=== PATIENT | male | born 1980 | race Caucasian/White ===

== ENCOUNTER 2018-10-08 10:07 | Inpatient (IN) ==
[2018-10-08] MEDS ORDERED: Acetaminophen 325 MG Tablet PO PRN (13:42)
[2018-10-08] MEDS ORDERED: Sodium Phosphate Inj 15 MMOL in Sodium Chlor 0.9% Inj 100 ML IV.SIG PRN (13:45)
[2018-10-08] MEDS ORDERED: Potassium Chlor 40 mEq Premix 40 MEQ/100 ML PIGGYBACK IV.SIG PRN ×2 (13:45)
[2018-10-08] MEDS ORDERED: Potassium Chlor 20 mEq Premix 20 MEQ/100 ML PIGGYBACK IV.SIG PRN ×6 (13:45)
[2018-10-08] MEDS ORDERED: Insulin Regular (For Infusion) 100 UNIT in Sodium Chlor 0.9% Inj 99 ML IV.CONT PRN (14:00)
[2018-10-08] MEDS: Sod Chloride 0.9% Inj 1,000 ML IV.CONT SCH (15:36)
--- NOTE | 2018-10-08 17:49 | P.HPIM ---
History of Present Illness Primary Care Physician: No Primary Care Physician Chief Complaint: Weakness, Nausea, Hyperglycemia History of Present Illness: Mr. House is a 38-year-old male. He comes in secondary to weakness, nausea, and hyperglycemia. He has a previous history of DKA. He says starting about 2 years ago he has had 2 prior episodes of DKA. He is found to be in DKA today. He missed his insulin dosing this morning secondary to nausea and lack of p.o. intake. He does report that recently his blood sugars have not been controlled and he has been needing more insulin than previously. His only other medical condition is a stress related seizure disorder which he treats with marijuana. No other complaints. Inpatient Certification Inpatient Certification: I certify that the inpatient services were ordered in accordance with Medicare regulations governing the order. This includes certification that hospital inpatient services are reasonable and necessary and in the case of services not specified as inpatient-only under 42 CFR 419.22(n), that they are appropriately provided as inpatient services in accordance to with the 2-midnight benchmark under 43 CFR 412.3(e) Estimated Total Length of Stay (Days): 4 Plans for Post Hospital Care: Home Review of Systems Constitutional: No fevers, no chills no night sweats, no fatigue, weakness Eyes: No eye pain, no blurry vision, no loss of vision ENT: No sore throat, no ear pain, no rhinorrhea Cardiovascular: No chest pain, no tachycardia, no palpitations, no syncope Respiratory: No wheezing, no cough, no shortness of breath Gastrointestinal: No abdominal pain, no black tarry stools, no bright red blood per rectum, nausea, no diarrhea Musculoskeletal: No joint pain, no muscle cramps, no stiffness Integumentary: No rash, no ulcers, no drainage Neurologic: No sensory loss, no loss of motor function, no dizziness Psychiatric: No behavioral changes, no hallucinations, no suicidal ideations [facility] Medical History Medical History Diabetes (Acute) Surgical History Surgical History Hx of hand surgery (Acute) Family History Family History Other Osteoarthritis Social History Social History Substance History: Active Abuse Second Hand Smoke Exposure: Yes Smoking Status: Current every day smoker Tobacco Type: Cigarettes How Often Do You Have a Drink Containing Alcohol: Monthly or less Recent Travel in [place] within the Last 8 Weeks: No Recent Out of Country Travel within the Last 8 Weeks: No Substance Abuse Detail Marijuana: Substance Use Status: Active Route Used Substance Abuse: Inhalation Substance Frequency: 1 gram every 2 to 3 days Immunization History Hx Influenza Vaccine This Season: No Medications and Allergies Allergies Allergy/AdvReac Type Severity Reaction Status Date / Time codeine Allergy Vomiting Verified 10/08/18 10:25 Home Medications Medication Instructions Recorded Confirmed Type Long Acting Insulin 14 units SUBCUT DAILY 10/08/18 History Short Acting Insulin 10 units SUBCUT TID 10/08/18 History Active Medications: Active Medications Acetaminophen (Tylenol) 650 mg PO Q4H PRN PRN Reason: Temp > 100.4 Al Hydroxide/Mg Hydroxide (Milk Of Gilberto Maldonado) 30 ml PO Q12H PRN PRN Reason: Mild Constipation Chlorhexidine Gluconate (Chlorhexidine 2% Cloth) 3 pack TOPICAL DAILY@0400 HERMINIO Stop: 10/14/18 03:59 Chlorhexidine Gluconate (Chlorhexidine 2% Cloth) 3 pack TOPICAL DAILY@0400 PRN PRN Reason: Extra cloth needed Stop: 10/14/18 03:59 Sodium Chloride (Ns Inj) 1,000 mls @ 100 mls/hr IV.CONT .Q10H HERMINIO Dextrose/Sodium Chloride (D5w/Normal Saline Inj) 1,000 mls @ 200 mls/hr IV.CONT .Q5H HERMINIO Potassium Chloride (Kcl 20 Meq Premix Inj) 20 meq in 100 mls @ 100 mls/hr IV.SIG Q1H PRN PRN Reason: for K+ 4.5 to 5 Potassium Chloride (Kcl 20 Meq Premix Inj) 20 meq in 100 mls @ 50 mls/hr IV.SIG Q2H PRN PRN Reason: for K+ 4.5 to 5 Potassium Chloride (Kcl 20 Meq Premix Inj) 20 meq in 100 mls @ 100 mls/hr IV.SIG Q1H PRN PRN Reason: for K+ 3.5 to 4.4 Potassium Chloride (Kcl 20 Meq Premix Inj) 20 meq in 100 mls @ 50 mls/hr IV.SIG Q2H PRN PRN Reason: for Initial K+ ONLY < 3.5 Potassium Chloride (Kcl 40 Meq Premix Inj) 40 meq in 100 mls @ 100 mls/hr IV.SIG Q1H PRN PRN Reason: for Initial K+ ONLY < 3.5 Potassium Chloride (Kcl 20 Meq Premix Inj) 20 meq in 100 mls @ 50 mls/hr IV.SIG Q2H PRN PRN Reason: for Subsequent K+ < 3.5 Potassium Chloride (Kcl 40 Meq Premix Inj) 40 meq in 100 mls @ 50 mls/hr IV.SIG Q2H PRN PRN Reason: for Subsequent K+ < 3.5 Sodium Chloride (Ns Inj) 1,000 mls @ 250 mls/hr IV.CONT .Q4H HERMINIO Last Admin: 10/08/18 15:36 Dose: 250 mls/hr Insulin Human Regular 100 unit (/ Sodium Chloride) 100 mls @ 5 mls/hr IV.CONT TITRATE PRN; Protocol PRN Reason: See protocol Sodium Phosphate 15 mmol/ (Sodium Chloride) 105 mls @ 25 mls/hr IV.SIG UNSCH PRN PRN Reason: for Phosphate Level < 1.0 Potassium Chloride (Kcl 20 Meq Premix Inj) 20 meq in 100 mls @ 50 mls/hr IV.SIG Q2H PRN PRN Reason: for K+ 3.5 to 4.4 Ondansetron HCl (Zofran Inj) 4 mg IV.PUSH Q6H PRN PRN Reason: NAUSEA OR VOMITING Sodium Bicarbonate (Sodium Bicarbonate 8.4% Inj) 100 meq IV.PUSH UNSCH PRN PRN Reason: for pH less than 6.9 Sodium Bicarbonate (Sodium Bicarbonate 8.4% Inj) 50 meq IV.PUSH UNSCH PRN PRN Reason: for pH 6.9 to 7.0 Sodium Chloride (Ns Flush) 2 ml IV.FLUSH BID HERMINIO Sodium Chloride (Ns Flush) 2 ml IV.FLUSH PRN PRN PRN Reason: FLUSH AFTER USING IV ACCESS Physical Exam Vital signs: Last Vital Signs Temp 99.2 F 10/08/18 16:00 Pulse 119 H 10/08/18 16:00 Resp 16 10/08/18 16:00 BP 114/72 10/08/18 16:00 Pulse Ox 98 10/08/18 16:00 Intake & Output 10/06/18 10/07/18 10/08/18 10/09/18 06:59 06:59 06:59 06:59 Weight 61.7 kg Narrative: GENERAL: NAD, A&Ox3 HEAD: Normocephalic. NECK: Supple, trachea midline. No lymphadenopathy. EYES: No scleral icterus. No injection or drainage. CARDIOVASCULAR: Regular rate and rhythm without murmurs, gallops, or rubs. RESPIRATORY: Breath sounds equal bilaterally. No accessory muscle use. GASTROINTESTINAL: Abdomen soft, non-tender, nondistended. MUSCULOSKELETAL: No cyanosis, or edema. SKIN: Warm and Diaphoretic. Evidence of dehydration. NEURO: No focal neurological deficits. Caprini VTE Risk Assessment Caprini VTE Risk Assessment: No/Low Risk (score <= 1) Caprini Risk Assessment Model: Point Value = 1 Point Value = 2 Point Value = 3 Point Value = 5 Age 41-60 Minor surgery BMI > 25 kg/m2 Swollen legs Varicose veins or History of unexplained or recurrent spontaneous Oral contraceptives or hormone replacement Sepsis (< 1 month) Serious lung disease, including pneumonia (< 1 month) Abnormal pulmonary function Acute myocardial infarction Congestive heart failure (< 1 month) History of inflammatory bowel disease Medical patient at bed rest Age 61-74 Arthroscopic surgery Major open surgery (> 45 min) Laparoscopic surgery (> 45 min) Malignancy Confined to bed (> 72 hours) Immobilizing plaster cast Central venous access Age >= 75 History of VTE Family history of VTE Factor V Leiden Prothrombin [id number] Lupus anticoagulant Anticardiolipin antibodies Elevated serum homocysteine Heparin-induced thrombocytopenia Other congenital or acquired thrombophilia Stroke (< 1 month) Elective arthroplasty Hip, pelvis, or leg fracture Acute spinal cord injury (< 1 month) Prophylaxis Regimen: Total Risk Factor Score Risk Level Prophylaxis Regimen 0-1 Low Early ambulation 2 Moderate Order ONE of the following: *Sequential Compression Device (SCD) *Heparin 5000 units SQ BID 3-4 Higher Order ONE of the following medications: *Heparin 5000 units SQ TID *Enoxaparin/Lovenox 40 mg SQ daily (WT < 150 kg, CrCl > 30 mL/min) *Enoxaparin/Lovenox 30 mg SQ daily (WT < 150 kg, CrCl > 10-29 mL/min) *Enoxaparin/Lovenox 30 mg SQ BID (WT < 150 kg, CrCl > 30 mL/min) AND/OR *Sequential Compression Device (SCD) 5 or more Highest Order ONE of the following medications: *Heparin 5000 units SQ TID (Preferred with Epidurals) *Enoxaparin/Lovenox 40 mg SQ daily (WT < 150 kg, CrCl > 30 mL/min) *Enoxaparin/Lovenox 30 mg SQ daily (WT < 150 kg, CrCl > 10-29 mL/min) *Enoxaparin/Lovenox 30 mg SQ BID (WT < 150 kg, CrCl > 30 mL/min) AND *Sequential Compression Device (SCD) Assessment and Plan Plan 38-year-old male admitted secondary to DKA DKA diabetes mellitus type 2 IV insulin drip Follow electrolytes closely Replace electrolytes as needed Transition to SQ insulin tomorrow morning if blood sugars are controlled by that point Follow blood sugars Diabetic diet Stress related seizure disorder Patient treats this as an outpatient with marijuana Seizures are rare Follow clinically DVT prophylaxis SCDs H&P: Quality VTE Deep Vein Thrombosis/Pulmonary Embolism Present on Admission: No
[2018-10-08] MEDS: Dextrose 5%/NaCl 0.9% Inj 1,000 ML IV.CONT SCH ×2 (18:42→23:42)
[2018-10-08 19:36] LABS: Calcium 8.3 mg/dL (8.5-10.1); Carbon Dioxide 13.9 meq/L (21.0-32.0); Potassium 3.8 meq/L (3.5-5.1)
[2018-10-09 02:39] LABS: Baso # (Auto) 0.3 th/mm3 (0.0-0.2); Baso % (Auto) 1.5 % (0.0-2.0); Eos % (Auto) 0.1 % (0.0-4.0); Hematocrit 42.7 % (39.0-51.0); Hemoglobin 14.5 gm/dL (13.0-17.0); Lymph # (Auto) 1.6 th/mm3 (1.0-4.8); Lymph % (Auto) 7.6 % (9.0-44.0); Mean Corpuscular HGB Conc 33.9 % (32.0-36.0); Mean Corpuscular Hemoglobin 30.9 pg (27.0-34.0); Mean Corpuscular Volume 90.9 fL (80.0-100.0); Mean Platelet Volume 8.3 fL (7.0-11.0); Mono # (Auto) 1.6 th/mm3 (0.0-0.9); Mono % (Auto) 7.8 % (0.0-8.0); Neut # (Auto) 17.3 th/mm3 (1.8-7.7); Platelet Count 244 th/mm3 (150-450); Red Blood Count 4.69 mil/mm3 (4.50-5.90); White Blood Count 20.8 th/mm3 (4.0-11.0)
[2018-10-09 02:58] LABS: Alanine Aminotransferase 26 U/L (12-78); Albumin 3.2 g/dL (3.4-5.0); Anion Gap 7 meq/L (5-15); Aspartate Aminotransferase 11 U/L (15-37); Blood Urea Nitrogen 17 mg/dL (7-18); Calcium 7.9 mg/dL (8.5-10.1); Carbon Dioxide 22.6 meq/L (21.0-32.0); Chloride 117 meq/L (98-107); Glomerular Filtration Rate 69 mL/min (>89); Glucose,Random 193 mg/dL (74-106); Phosphorus 1.3 mg/dL (2.5-4.9); Potassium 3.6 meq/L (3.5-5.1); Sodium 147 meq/L (136-145)
[2018-10-09 03:01] LABS: Alkaline Phosphatase 100 U/L (45-117)
[2018-10-09 03:06] LABS: Lymphocytes 2 % (9-44); Metamyelocytes 1 % (0-1); Monocytes 6 % (0-8)
[2018-10-09 03:07] LABS: Platelet Estimate Normal (Normal); Platelet Morphology Normal (Normal)
[2018-10-09 03:08] LABS: RBC Morphology Normal (Normal)
[2018-10-09] MEDS ORDERED: DC previous DKA orders (HMC 1917) OTHER ONE (03:48)
[2018-10-09] MEDS ORDERED: Dextrose 50% in Water 50 ML Vial IV.PUSH PRN (03:48)
[2018-10-09] MEDS ORDERED: DC Insulin drip 2 hrs post basal insulin dose OTHER ONE (03:48)
[2018-10-09] MEDS ORDERED: Potassium Phosphate 500 MG Soluble Tablet PO ONE (03:51)
[2018-10-09] MEDS ORDERED: Insulin Regular (For Infusion) 100 UNIT in Sodium Chlor 0.9% Inj 99 ML IV.CONT PRN (03:54)
[2018-10-09] MEDS ORDERED: Chlorhexidine Gluconate 2% 1 Pack (2 Cloths) TOPICAL PRN (04:00)
[2018-10-09] MEDS ORDERED: Chlorhexidine Gluconate 2% 1 Pack (2 Cloths) TOPICAL SCH (04:00)
[2018-10-09] MEDS: Insulin Detemir Inj 1,000 UNIT/10 ML Vial SQ SCH ×2 (04:23→11:15)
[2018-10-09] MEDS: Sod Chloride 0.9% Inj 1,000 ML IV.CONT SCH ×4 (07:26→11:16)
[2018-10-09] MEDS: Dextrose 5%/NaCl 0.9% Inj 1,000 ML IV.CONT SCH (07:26)
[2018-10-09] MEDS: Insulin NovoLOG Aspart Correctional Sugar Inj SQ SCH ×2 (08:18→11:16)
[2018-10-09 09:20] VITALS: PULSE 89
--- NOTE | 2018-10-09 09:33 | P.PNIM ---
Subjective Interval history: 38yo m insulin dependent diabetic admitted with dka pt seen and examined he denies any recent illness, no fever, chills, wounds injury, cough, states he doesnt know why his sugars were uncontrolled, he is not out of insulin, but out of lancets so was not checking his sugars frequently , but when he did the meter was reading error. Physical Exam Vital signs: Last Vital Signs Temp 98.9 F 10/09/18 04:00 Pulse 89 10/09/18 08:00 Resp 14 10/09/18 07:00 BP 105/55 L 10/09/18 07:00 Pulse Ox 97 10/09/18 07:00 Intake & Output 10/07/18 10/08/18 10/09/18 10/10/18 06:59 06:59 06:59 06:59 Intake Total 4500 / 4500 Output Total 2525 / 2525 Balance 1974 Weight 64.1 kg thin wdwn w 38yo m aaox3 nad pleasant heart s1s2 reg lungs clear no wrr abd soft nondt pos bs ext no edema no calf tenderness Results Labs CBC & Chem 7: 10/09/18 02:30 10/09/18 02:30 Assessment and Plan Plan DKA DEHYDRATION - cont ivf as tolerated encourage po intake SEIZURE DO NOS - not on AE meds, monitor LEUKOCYTOSIS w no evidence of infection, likely reactive , will get ua, no fever, will hold off on atibiotics at this time IMAN due to dehydration, improved HYPOPHOSPHATEMIA - replace per protocol, start diet. clinically improved, advance diet, complinace with insulin and diet discussed as well as followup possible discharge home later today if continues to do well. Progress Note: Quality VTE Deep Vein Thrombosis/Pulmonary Embolism Present on Admission: No
[2018-10-09 09:36] VITALS: BP 101/61; RESP 17; O2SAT 99
[2018-10-09 14:54] VITALS: TEMP 98.8
[2018-10-09 15:47] LABS: Hemoglobin A1c 17.4 % (4.3-6.0)
--- NOTE | 2018-10-09 19:19 | P.DS ---
DS: Providers Date of admission: 10/08/18 14:30 Primary care physician: No Primary Care Physician Brief History from admission: Mr. House is a 38-year-old male. He comes in secondary to weakness, nausea, and hyperglycemia. He has a previous history of DKA. He says starting about 2 years ago he has had 2 prior episodes of DKA. He is found to be in DKA today. He missed his insulin dosing this morning secondary to nausea and lack of p.o. intake. He does report that recently his blood sugars have not been controlled and he has been needing more insulin than previously. His only other medical condition is a stress related seizure disorder which he treats with marijuana. No other complaints. DS: Summary Patient was continued on insulin drip and his acidosis resolved with fluid hydration, his leukocytosis improved with no identifible source of infection. He was tolerating a diet and counseled at length re compliance and followup. He was out of his insulin and lancets /testing supplies and these were ordered for him. He was instructed re follow up. Admitting dx DKA DC Dx DKA medical noncompliance dehydration danika reactive leukocytosis Time Spent with Patient Total time spent providing and/or coordinating discharge services: Less than 30 minutes Status at Discharge Functional status at discharge: independent ambulation Overall status at discharge: patient is back to baseline Quality: VTE Deep Vein Thrombosis/Pulmonary Embolism Present on Admission: No Results Labs on day of discharge: Labs from last 24 hours 10/09/18 10/09/18 10/09/18 13:40 11:12 07:54 WBC RBC Hgb Hct MCV MCH MCHC RDW Plt Count MPV Prelim Diff (Auto) Neut % (Auto) Lymph % (Auto) Tift % (Auto) Eos % (Auto) Baso % (Auto) Neut # (Auto) Lymph # (Auto) Tift # (Auto) Eos # (Auto) Baso # (Auto) WBC Differential Seg Neuts % (Manual) Band Neuts % (Manual) Lymphocytes % (Manual) Monocytes % (Manual) Metamyelocytes % (Man) Abs Neuts (Manual) Differential Comment Platelet Estimate Platelet Morphology RBC Morphology Sodium Potassium Chloride Carbon Dioxide Anion Gap BUN Creatinine Estimated GFR POC Glucose 235 H 127 H 95 Random Glucose Hemoglobin A1c Calcium Phosphorus Magnesium Total Bilirubin AST ALT Alkaline Phosphatase Total Protein Albumin Beta-Hydroxybutyric Acd 10/09/18 10/09/18 10/09/18 05:56 03:38 02:30 WBC RBC Hgb Hct MCV MCH MCHC RDW Plt Count MPV Prelim Diff (Auto) Neut % (Auto) Lymph % (Auto) Tift % (Auto) Eos % (Auto) Baso % (Auto) Neut # (Auto) Lymph # (Auto) Tift # (Auto) Eos # (Auto) Baso # (Auto) WBC Differential Seg Neuts % (Manual) Band Neuts % (Manual) Lymphocytes % (Manual) Monocytes % (Manual) Metamyelocytes % (Man) Abs Neuts (Manual) Differential Comment Platelet Estimate Platelet Morphology RBC Morphology Sodium Potassium Chloride Carbon Dioxide Anion Gap BUN Creatinine Estimated GFR POC Glucose 110 152 H Random Glucose Hemoglobin A1c 17.4 H Calcium Phosphorus Magnesium Total Bilirubin AST ALT Alkaline Phosphatase Total Protein Albumin Beta-Hydroxybutyric Acd 10/09/18 10/09/18 10/09/18 02:30 02:30 02:19 WBC 20.8 H RBC 4.69 Hgb 14.5 D Hct 42.7 MCV 90.9 D MCH 30.9 MCHC 33.9 RDW 13.0 Plt Count 244 D MPV 8.3 Prelim Diff (Auto) Slide review pending Neut % (Auto) 83.0 H Lymph % (Auto) 7.6 L Tift % (Auto) 7.8 Eos % (Auto) 0.1 Baso % (Auto) 1.5 Neut # (Auto) 17.3 H Lymph # (Auto) 1.6 Tift # (Auto) 1.6 H Eos # (Auto) 0.0 Baso # (Auto) 0.3 H WBC Differential Manual diff final Seg Neuts % (Manual) 87 H Band Neuts % (Manual) 4 Lymphocytes % (Manual) 2 L Monocytes % (Manual) 6 Metamyelocytes % (Man) 1 Abs Neuts (Manual) 19.1 H Differential Comment . Platelet Estimate Normal Platelet Morphology Normal RBC Morphology Normal Sodium 147 H Potassium 3.6 Chloride 117 H Carbon Dioxide 22.6 Anion Gap 7 BUN 17 Creatinine 1.19 Estimated GFR 69 L POC Glucose 173 H Random Glucose 193 H Hemoglobin A1c Calcium 7.9 L Phosphorus 1.3 L Magnesium 2.0 Total Bilirubin 0.7 AST 11 L ALT 26 Alkaline Phosphatase 100 Total Protein 6.0 L D Albumin 3.2 L D Beta-Hydroxybutyric Acd 1.10 H D 12/02/2110/09/18 10/08/18 01:21 00:18 23:45 WBC RBC Hgb Hct MCV MCH MCHC RDW Plt Count MPV Prelim Diff (Auto) Neut % (Auto) Lymph % (Auto) Tift % (Auto) Eos % (Auto) Baso % (Auto) Neut # (Auto) Lymph # (Auto) Tift # (Auto) Eos # (Auto) Baso # (Auto) WBC Differential Seg Neuts % (Manual) Band Neuts % (Manual) Lymphocytes % (Manual) Monocytes % (Manual) Metamyelocytes % (Man) Abs Neuts (Manual) Differential Comment Platelet Estimate Platelet Morphology RBC Morphology Sodium Potassium Chloride Carbon Dioxide Anion Gap BUN Creatinine Estimated GFR POC Glucose 167 H 165 H 140 H Random Glucose Hemoglobin A1c Calcium Phosphorus Magnesium Total Bilirubin AST ALT Alkaline Phosphatase Total Protein Albumin Beta-Hydroxybutyric Acd 10/08/18 10/08/18 10/08/18 23:15 22:00 20:58 WBC RBC Hgb Hct MCV MCH MCHC RDW Plt Count MPV Prelim Diff (Auto) Neut % (Auto) Lymph % (Auto) Tift % (Auto) Eos % (Auto) Baso % (Auto) Neut # (Auto) Lymph # (Auto) Tift # (Auto) Eos # (Auto) Baso # (Auto) WBC Differential Seg Neuts % (Manual) Band Neuts % (Manual) Lymphocytes % (Manual) Monocytes % (Manual) Metamyelocytes % (Man) Abs Neuts (Manual) Differential Comment Platelet Estimate Platelet Morphology RBC Morphology Sodium Potassium Chloride Carbon Dioxide Anion Gap BUN Creatinine Estimated GFR POC Glucose 145 H 178 H 213 H Random Glucose Hemoglobin A1c Calcium Phosphorus Magnesium Total Bilirubin AST ALT Alkaline Phosphatase Total Protein Albumin Beta-Hydroxybutyric Acd 10/08/18 10/08/18 20:01 18:23 WBC RBC Hgb Hct MCV MCH MCHC RDW Plt Count MPV Prelim Diff (Auto) Neut % (Auto) Lymph % (Auto) Tift % (Auto) Eos % (Auto) Baso % (Auto) Neut # (Auto) Lymph # (Auto) Tift # (Auto) Eos # (Auto) Baso # (Auto) WBC Differential Seg Neuts % (Manual) Band Neuts % (Manual) Lymphocytes % (Manual) Monocytes % (Manual) Metamyelocytes % (Man) Abs Neuts (Manual) Differential Comment Platelet Estimate Platelet Morphology RBC Morphology Sodium 144 D Potassium 3.8 Chloride 112 H D Carbon Dioxide 13.9 L Anion Gap 18 H BUN 25 H Creatinine 1.52 H Estimated GFR 52 L POC Glucose 194 H Random Glucose 261 H D Hemoglobin A1c Calcium 8.3 L Phosphorus Magnesium Total Bilirubin AST ALT Alkaline Phosphatase Total Protein Albumin Beta-Hydroxybutyric Acd Discharge Plan Discharge Disposition Patient Disposition: 01 Discharge Home Discharge Condition Condition: Stable Discharge Order Discharge Orders: Discharge Order (Routine); Ordered 10/09/18 Ordered By: Phuong Jessica Discharge Details Anticipated Discharge Date: 10/09/18 Discharge Comment: ok to discharge home if tolerating lunch and afebrile. Physicians Team Primary Care Provider: Primary Care Fifi Gerber Attending Provider: Steve Jackson Rxs /Orders / Referrals /Forms Prescriptions: New lancets [Lancets,Thin] 23 gauge misc .ROUTE .MEDSUPPLY Qty: 100 RF: 0 Continue Long Acting Insulin 14 units subcut DAILY 30 Days Qty: 5 RF: 1 Short Acting Insulin 10 units subcut TID 30 Days Qty: 5 RF: 0 Referrals: NONE PER PT [Other] - See Instructions Primary Care Fifi Gerber [Primary Care Provider] - See Instructions ( Please call the physician's office to book the appointment to be seen within 2-3 days, at [facility] Your Health Problems: Goals to Promote Your Health: To prevent worsening of your condition To maintain your health at the optimal level Directions to Meet Your Goals: Take your medications as prescribed Follow your dietary instruction Follow activity as directed Keep your appointments as scheduled Take your immunizations and boosters as scheduled If your symptoms worsen call your PCP If no PCP go to Urgent Care or Emergency Room Smoking is dangerous to your health. Avoid second hand smoke. You may reach the 24-hour crisis hotline for domestic abuse at .) Status ED Status: Admitted Patient Discharge Information Discharge Date/Time: 10/09/18 13:55
== END 2018-10-09 13:55 | disposition home or self-care (01) ==
LOC: NEDDLT 10:07 → HIMC 14:30
PROVIDERS: ADMIT Hospitalist; ATTEND Hospitalist